=== PATIENT | male | born 1960 | race Caucasian/White ===

== ENCOUNTER 2018-09-07 14:33 | Outpatient (CLI) | payer BC ==
--- NOTE | 2018-09-07 16:47 | MRI ---
MRI CERVICAL SPINE: HISTORY: Herniated disk. TECHNIQUE: Multiplanar, multisequence, noncontrast-enhanced MR images of the cervical spine obtained. FINDINGS: C1-C2: Unremarkable. C2-C3: Unremarkable. C3-C4: Disk desiccation is seen. There is a broad-based disk osteophyte complex centrally, compress ing the thecal sac, resulting in a moderate degree of central stenosis and moderate bilateral neural foraminal narrowing. C4-C5: Disk desiccation is seen. There is a broad-based disk osteophyte complex centrally, compress ing the thecal sac, resulting in moderate to severe central and severe bilateral C4-C5 neural foramin al narrowing due to uncovertebral osteophyte hypertrophy. C5-C6: Disk desiccation is seen. There is a broad-based disk osteophyte complex centrally, compress ing the thecal sac, resulting in moderate to severe central spinal stenosis. Moderate bilateral C5-C 6 neural foraminal narrowing is seen. C6-C7: Disk desiccation is seen. There is a broad-based disk osteophyte complex centrally, compress ing the thecal sac, resulting in severe central and lateral recess stenosis. There is severe bilater al C6-C7 neural foraminal narrowing due to uncovertebral osteophyte hypertrophy. C7-T1: Unremarkable. IMPRESSION: 1. Multilevel broad-based disk osteophyte complexes compressing the thecal sac at C3-C4, C4-C5, C5-C 6, and C6-C7. 2. Extensive bilateral neural foraminal narrowing is also present, as described above. POS: [facility]
--- NOTE | 2018-09-07 17:26 | MRI ---
MRI LUMBAR SPINE: HISTORY: Lumbar radiculopathy, M54.16 and M79.606. TECHNIQUE: Multiplanar, multisequence, noncontrast-enhanced MR images of the lumbar spine obtained. RADIOGRAPHIC FINDINGS: T12-L1: Unremarkable. L1-L2: Mild facet hypertrophy is seen. The central canal and neural foramen are patent. L2-L3: Disk desiccation is seen. There is bilateral facet and ligamentum flavum hypertrophy. This results in mild central stenosis. The neural foramen are patent. L3-L4: Disk desiccation is seen. There is a broad-based disk bulge with bilateral facet and ligamen nela flavum hypertrophy, resulting in mild central and lateral recess stenosis. The neural foramen ar e patent. L4-L5: Disk desiccation is seen. There is a broad-based disk bulge with bilateral facet and ligamen nela flavum hypertrophy. This results in mild central and lateral recess stenosis. The neural forame n are patent. L5-S1: Unremarkable. IMPRESSION: 1. Bilateral facet and ligamentum flavum hypertrophy at L2-L3, L3-L4, and L4-L5. 2. Some broad-based disk bulges and central stenosis is seen at L3-L4 and at L4-L5. POS: [facility]
== END 2018-09-07 14:34 | disposition home or self-care (01) ==
LOC: SCSMRI 14:33
PROVIDERS: ATTEND Neurological Surgery
DX: M50.20 Other cervical disc displacement, unspecified cervical region (principal); M54.16 Radiculopathy, lumbar region; M79.606 Pain in leg, unspecified; M48.8X6 Other specified spondylopathies, lumbar region; M48.061 Spinal stenosis, lumbar region without neurogenic claudication; M48.02 Spinal stenosis, cervical region
CPT/HCPCS: 72141; 72148

== ENCOUNTER 2018-11-27 09:47 | Outpatient (CLI) | payer BC ==
--- NOTE | 2018-11-27 10:01 | RAD ---
XR Cerv Sp Ap Lat STANDARD History: [M 50.01. Pain.] Comparison: MR cervical spine August 2018 Findings: No acute fracture or malalignment. Advanced degenerative disc space height loss at 6/C7. Br idging anterior osteophyte at C5/C6 and C6/C7. No significant listhesis. No translation with flexion or extension. Impression: No translation with flexion or extension.
== END 2018-11-27 09:48 | disposition home or self-care (01) ==
LOC: SCSRAD 09:47
PROVIDERS: ATTEND Neurological Surgery
DX: M50.01 Cervical disc disorder with myelopathy, high cervical region (principal)
CPT/HCPCS: 72040

== ENCOUNTER 2019-01-13 07:53 | Outpatient (CLI) | payer BC ==
[2019-01-13 08:54] LABS: Hemoglobin 16.3 g/dL (14.0-18.0); Platelet Count 231 thou/uL (130-400); RBC Distribution Width 11.5 % (11.5-14.5); White Blood Cell (WBC) Count 9.6 thou/uL (4.8-10.8)
[2019-01-13 08:59] LABS: Prothrombin Time 12.9 SEC (12.0-14.7)
== END 2019-01-13 07:54 | disposition home or self-care (01) ==
LOC: LABBT 07:53
PROVIDERS: ATTEND Neurological Surgery
DX: Z01.812 Encounter for preprocedural laboratory examination (principal); M48.02 Spinal stenosis, cervical region
CPT/HCPCS: 85027; 85610; 85730

== ENCOUNTER 2019-01-15 05:36 | Inpatient (IN) | payer BC ==
[2019-01-13 08:22] VITALS: BMI 26.5
--- NOTE | 2019-01-13 09:55 | HP ---
HISTORY OF PRESENT ILLNESS: Mr. Brenner is a 58-year-old male who reports to our office for evaluation of a left cervical radiculopathy. The patient states that he was seen in 2008, where he had herniated disks of cervical spine. At that time, he was scheduled for surgery and then changed his mind. Once the patient realized he was not having heart attack symptoms, he decided he could live with this at that time. The patient is concerned because he has new pain in the left lower leg from below his knee down to the vasques. The patient concerned that this leg pain is associated with the neck. He currently has pain, numbness, and tingling in his forearm and the middle of his ring fingers, middle and ring fingers on the left side. He states that physical therapy has been going for approximately 3 weeks, but this seems to increase his neck and shoulder pain. He denies any recent medications or injection use. REVIEW OF SYSTEMS: A 10-point review of systems has been completed and is negative other than stated in the above HPI. PAST MEDICAL HISTORY: 1. Cervical fracture. 2. Cervical radiculopathy. 3. Hyperlipidemia. 4. Colon polyps. SURGICAL HISTORY: 1. Tonsillectomy in 1971. 2. Hemorrhoidectomy in 1991. FAMILY HISTORY: Father is , had bypass, hypertension, and heart disease. Mother is alive, diagnosed with cancer. Siblings are alive. SOCIAL HISTORY: The patient is a nonsmoker. Does not use any other illicit drugs. He is sexually active with spouse. He is a professor and , has children. Drinks coffee daily. MEDICATIONS: 1. Atorvastatin. 2. Vitamin D3. 3. CoQ10. 4. Multivitamins. 5. Vitamin C. ALLERGIES: NO KNOWN DRUG ALLERGIES. PHYSICAL EXAMINATION: HEENT: Head is normocephalic and atraumatic. Pupils are equal, round, and reactive to light. Extraocular movements are intact. Hearing is intact. Moist mucous membranes. NEUROLOGIC: Gait and station; tandem gait is difficult. Motor exam; there is no obvious changes in motor function, 5/5 bilateral deltoids, triceps, biceps, wrist extension, finger extension, finger intrinsics. Sensation is equal in bilateral. Negative Tinel's. Tandem walk. Negative Spurling's. IMAGING STUDIES: MRI, cord compression at C3-C4, C4-C5, C5-C6, C6-C7, syrinx developing at C6-C7. ASSESSMENT AND PLAN: Cervical disk disorder with myelopathy. Dr. Garsia has offered surgery, posterior laminectomy of C3 through C7 without fusion. The patient states that he understands the risks and is willing to proceed with surgery. Job ID: [id number]
[2019-01-15] MEDS ORDERED: Bupivacaine HCl 0.5%/Epinephrine 1:200,000/PF 30 ml Vial ONE (06:16)
[2019-01-15] MEDS ORDERED: Sodium Chloride 0.9% 20 ML ONE (06:17)
[2019-01-15] MEDS ORDERED: Thrombin 5000 UNITS/5 ML VIAL ONE (06:17)
[2019-01-15] MEDS ORDERED: Bacitracin Zinc Ointment 30 gm TUBE ONE (06:17)
[2019-01-15] MEDS ORDERED: Phenylephrine HCL 10 MG/ML VIAL ONE (06:32)
[2019-01-15] MEDS ORDERED: Albumin 5% 0 ML ONE (06:32)
[2019-01-15] MEDS ORDERED: Fentanyl 250 MCG/5 ML VIAL ONE (06:32)
[2019-01-15] MEDS ORDERED: Vecuronium 10 MG VIAL ONE (06:56)
[2019-01-15] MEDS ORDERED: Albumin 5% 500 ML ONE (06:56)
[2019-01-15] MEDS ORDERED: Morphine Sulfate 2 MG/ML SYRINGE SLOW IVP PRN (09:50)
[2019-01-15] MEDS ORDERED: PACU-Morphine 4MG/ML VIAL SLOW IVP PRN (09:50)
[2019-01-15] MEDS ORDERED: Promethazine HCl 25 MG/ML VIAL SLOW IVP PRN (09:50)
[2019-01-15] MEDS ORDERED: Ondansetron HCl/PF 4 MG/2 ML Vial IVP PRN (09:50)
[2019-01-15] MEDS ORDERED: HYDROmorphone 2 MG/ML VIAL SLOW IVP PRN (09:50)
[2019-01-15] MEDS ORDERED: Meperidine HCl/PF 25 MG/ML VIAL SLOW IVP PRN (09:50)
[2019-01-15] MEDS ORDERED: Promethazine HCl 25 MG/ML VIAL IM PRN ×2 (09:50→10:15)
[2019-01-15] MEDS ORDERED: Mag-Al 1200 mg/1200 mg/30 ML UDCUP PO PRN (10:15)
[2019-01-15] MEDS ORDERED: Ondansetron PF 4 MG/2 ML Vial IVP PRN (10:15)
[2019-01-15] MEDS ORDERED: Acetaminophen 325 MG TAB PO PRN (10:15)
[2019-01-15] MEDS ORDERED: Acetaminophen/Codeine 30-300mg Tablet PO PRN (10:15)
[2019-01-15] MEDS ORDERED: Bisacodyl 10 MG SUPP PR PRN (10:15)
[2019-01-15] MEDS ORDERED: traMADol HCl 50 MG TAB PO PRN ×2 (10:15)
[2019-01-15] MEDS ORDERED: diphenhydrAMINE 50 MG/ML VIAL IVP PRN (10:15)
[2019-01-15] MEDS ORDERED: Tamsulosin HCl 0.4 MG CAP PO PRN (10:15)
[2019-01-15] MEDS ORDERED: Morphine 4 MG/ML VIAL SLOW IVP PRN (10:15)
[2019-01-15] MEDS ORDERED: Promethazine 25 MG TAB PO PRN (10:15)
[2019-01-15] MEDS ORDERED: Milk Of Magnesia 30 ML UDCUP PO PRN (10:15)
[2019-01-15] MEDS ORDERED: diphenhydrAMINE 25 MG CAP PO PRN (10:15)
[2019-01-15] MEDS ORDERED: CEFAZOLIN 2 GM in Premix Bag 1 BAG IVPB SCH (10:15)
[2019-01-15] MEDS ORDERED: HYDROmorphone 2 MG/ML VIAL ONE (10:45)
[2019-01-15] MEDS ORDERED: Fentanyl 100 MCG/2 ML VIAL ONE (10:53)
[2019-01-15] MEDS ORDERED: Tamsulosin HCl 0.4 MG CAP ONE (11:04)
--- NOTE | 2019-01-15 12:55 | OP ---
DATE OF PROCEDURE: 01/15/2019 [employer] DEVELOPER: Jennifer Steve PA-C. PREOPERATIVE INDICATION: Prevent neurological deterioration. PREOPERATIVE DIAGNOSIS: Multilevel cervical spinal stenosis with myelopathy. POSTOPERATIVE DIAGNOSIS: Multilevel cervical spinal stenosis with myelopathy. PROCEDURES PERFORMED: Decompressive laminectomy with some medial facetectomy and foraminotomy at C3, C4, C5, C6, and C7. PREOPERATIVE MEDICATION: Ancef 2 g IV. DRAIN NUMBER: Zero. DRAIN TYPE: None. DESCRIPTION OF PROCEDURE: The patient was brought to the operating room. General endotracheal anesthesia was induced. A Lema pin headholder was attached to the patient's head and the patient was carefully rolled in the prone position on gel-filled chest rolls. The head was immobilized with a Lema attachment from the operating table. Hair was removed from the back of the scalp with electric clippers. We planned a midline incision, which would give us access from C3 to C7. The back of the neck was sterilely prepped and draped. We opened with a 10 blade knife and controlled bleeding with bipolar cautery. We used monopolar cautery to dissect to the ligamentum nuchae. We incised the ligament in the midline and we reflected the paraspinal muscles off the spinous process and lamina of C3, C4, C5, C6, and C7. A lateral fluoro radiograph to confirm the levels upon which we were operating. We then used a high-speed drill and a kenny bit to thin the lamina bilaterally of C3, C4, C5, C6, and the top of C7. Using a 2 mm Kerrison rongeur, we fashioned laminectomy laterally from C6 all the way up to C3 and then we removed the spinous process and laminae from C3 to C6 as a single unit. There was good dural decompression. There was pulsatility of the dura as well. We removed the superior 8 mm of the C7 lamina. Only to the interspaces, we performed small foraminotomies to ensure the nerve roots left the spine without impingement. We performed medial facetectomies to ensure we were lateral to the dura and there was no more dural compression. We controlled the lateral epidural bleeding with gentle bipolar cautery and pledgets of Gelfoam. We waxed the bone edges. We infused local anesthetic in the paraspinal muscles. We irrigated copiously with bacitracin irrigation. We closed the wound in anatomical layers. We applied a sterile dressing. This was a clean case, no contamination. Job ID: [id number]
[2019-01-15] MEDS: tiZANidine HCl 4 MG TAB PO PRN (20:11)
[2019-01-15] MEDS: CEFAZOLIN 2 GM in Premix Bag 1 BAG IVPB SCH (23:47)
[2019-01-15] MEDS: Acetaminophen/Codeine 30-300mg Tablet PO PRN (23:51)
[2019-01-16] MEDS: Sodium Chloride 0.9% 1,000 ML IV SCH ×2 (00:17→07:32)
[2019-01-16] MEDS: CEFAZOLIN 2 GM in Premix Bag 1 BAG IVPB SCH (06:14)
[2019-01-16] MEDS: Acetaminophen/Codeine 30-300mg Tablet PO PRN ×2 (06:18→10:56)
[2019-01-16] MEDS: tiZANidine HCl 4 MG TAB PO PRN ×2 (06:18→10:55)
[2019-01-16 07:53] VITALS: BP 105/69
[2019-01-16] MEDS ORDERED: Multivit, Therapeutic 1 TAB PO SCH (09:00)
[2019-01-16] MEDS ORDERED: Atorvastatin Calcium 10 MG TAB PO SCH (09:00)
[2019-01-16] MEDS ORDERED: Ascorbic Acid 500 mg Chewable Tablet PO SCH (09:00)
[2019-01-16] MEDS ORDERED: Ubidecarenone 50 MG CAP PO SCH (09:00)
--- NOTE | 2019-01-16 09:53 | PRG ---
DATE OF SERVICE: 01/16/2019 Mr. Brenner is one day out from a posterior decompression at C3-C7. His neck is sore and he has some paraspinal muscle spasm, especially if he holds his head perfectly still for number of hours. Starting to feel better, moving his head this morning. He is up drinking a cup of coffee and eating breakfast when I see him in his room. I do not find any new neurological deficit. He seems happy and able to perform all his activities of daily living. As such, we can discharge him home. Followup arrangements have been made. We went over home going activity restrictions and wound care. Job ID: [id number]
[2019-01-16 11:10] VITALS: TEMP 98.6
== END 2019-01-16 11:15 | disposition home or self-care (01) | DRG 516 ==
LOC: SDC 05:36 → SURG B 10:15
PROVIDERS: ADMIT Neurological Surgery; ATTEND Neurological Surgery
PROC: 01N10ZZ Release Cervical Nerve, Open Approach (ICD-10-PCS; principal; 2019-01-15)
DX: M48.02 Spinal stenosis, cervical region (principal); G99.2 Myelopathy in diseases classified elsewhere; E78.5 Hyperlipidemia, unspecified; Z90.89 Acquired absence of other organs; Z79.899 Other long term (current) drug therapy
CPT/HCPCS: 76000; 85027; 85610; 85730; J0131; J0670; J0690; J1170; J2370; J3010; J3370; J3490; P9045